=== PATIENT | female | born 1945 | race Caucasian/White ===

== ENCOUNTER 2017-06-07 18:22 | Emergency (ER) | payer MEDICARE ==
[~2017-06-07 18:22] MED LIST: ASPI325T PO; DEXI60CA3 PO; HYDR12.56 PO; LORTA5 PO; LOSA50TA PO; ZOCO40TA PO
[2017-06-07 18:25] VITALS: BP 188/91; PULSE 58; RESP 20; TEMP 98.2; O2SAT 98
[2017-06-07] MEDS ORDERED: GABA300C5 PO (18:42)
[2017-06-07] MEDS ORDERED: ASPI-183 PO (18:42)
[2017-06-07] MEDS ORDERED: ZOLP5TAB3 PO (18:42)
[2017-06-07] MEDS ORDERED: SIMV40TA PO (18:42)
[2017-06-07] MEDS ORDERED: HYDR12.56 PO (18:42)
[2017-06-07] MEDS ORDERED: LOSA100T PO (18:42)
--- NOTE | 2017-06-07 18:56 | PD ---
HPI Chief Complaint: Musculoskeletal Complaint Time Seen by Provider: 18:37 Travel History International Travel<30 days: Yes Contact w/Intl Traveler<30days: Yes [place] of [place] Traveled to known affect area: No History of Present Illness HPI 71-year-old female complaining of right-sided back pain. Patient states that she fell 6 days ago landed on her back. Patient states that she has persistent right-sided back pain since then. Patient denies any head injury. Patient denies any headache or neck pain. Patient denies any chest pain or shortness of breath. Patient denies abdominal pain. Patient denies any focal weakness or numbness of the extremity. Patient states the pain is sharp pain is aching pain localized to right low back area. Patient denies any pain radiation. Patient denies any fever chills. Patient denies any nausea vomiting diarrhea. Patient status post back surgery 5 in the past. Patient takes gabapentin intermittently. Patient has history of chronic kidney disease, anemia from chronic kidney disease, hyperlipidemia, hypothyroidism, PE, TIA. Patient states that she also has history of kidney stone in the past. PFSH Past Medical History Arthritis: Yes Asthma: No Anxiety: Yes Depression: Yes Cancer: Yes (THYROID) Cardiovascular Problems: Yes (CHF) High Cholesterol: Yes Chest Pain: Yes Congestive Heart Failure: Yes COPD: No Cerebrovascular Accident: Yes (7 years ago) Diabetes: No Diminished Hearing: No Endocrine: Yes (THYROIDECTOMY) Gastrointestinal Disorders: Yes (DYSPHAGIA, DIVERTICULOSIS) GERD: Yes Genitourinary: Yes (STRESS INCONTINENCE) Hiatal Hernia: Yes Hypertension: Yes Immune Disorder: No Implanted Vascular Access Dvce: Yes Kidney Stones: Yes (several) Musculoskeletal: Yes (ARTHRITIS) Neurologic: Yes (STROKE 2006) Psychiatric: Yes Reproductive: No Respiratory: Yes (BILATERAL EFFUSION) Migraines: No Renal Failure: Yes (CKD) Seizures: No Sleep Apnea: No Thyroid Disease: Yes (HYPOTHYROIDISM/ ca) Ulcer: No Tetanus Vaccination: > 5 Years Influenza Vaccination: Yes PNEUMOCCOCAL Vaccine (Year): 1 Menopausal: Yes : 4 Para: 3 : 1 Past Surgical History Abdominal Surgery: Yes (PARTIAL COLECTOMY/COLOSTOMY AND REVERSAL) Body Medical Devices: hardware inthe back rt side and ivc filter rt neck Cardiac Surgery: Yes (CARDIOPERICENTENIS) Ear Surgery: No Endocrine Surgery: Yes (THYROID BIOPSY) Eye Surgery: No Genitourinary Surgery: Yes (BLADDER REPAIR X 2) Hysterectomy: Yes Joint Replacement: Yes (RT KNEE) Oral Surgery: No Pacemaker: No Thoracic Surgery: Yes (thyroidectomy 2010) Other Surgery: Yes Social History Alcohol Use: Yes ("Not much") Tobacco Use: No Substance Use: No Allergies-Medications (Allergen,Severity, Reaction): Coded Allergies: acetaminophen (Unverified Allergy, Severe, ITCHING, 06/07/17) confusion propoxyphene (Unverified Allergy, Severe, ITCHING, 06/07/17) confusion Reported Meds & Prescriptions Reported Meds & Active Scripts Active Reported Gabapentin 300 Mg Cap 300 Mg PO TID Zolpidem (Zolpidem Tartrate) 5 Mg Tab 5 Mg PO HS PRN Hydrochlorothiazide 12.5 Mg Tab 12.5 Mg PO DAILY Simvastatin 40 Mg Tab 40 Mg PO HS Losartan (Losartan Potassium) 100 Mg Tab 100 Mg PO DAILY Aspirin 325 Mg Tab 325 Mg PO DAILY Review of Systems General / Constitutional: No: Fever Eyes: No: Visual changes HENT: No: Headaches Cardiovascular: No: Chest Pain or Discomfort Respiratory: No: Shortness of Breath Gastrointestinal: No: Abdominal Pain Genitourinary: No: Dysuria Musculoskeletal: No: Pain Skin: No Rash Neurologic: No: Weakness Psychiatric: No: Depression Endocrine: No: Polydipsia Hematologic/Lymphatic: No: Easy Bruising Physical Exam Narrative GENERAL: Well-nourished, well-developed patient. SKIN: Focused skin assessment warm/dry. HEAD: Normocephalic. EYES: No scleral icterus. No injection or drainage. NECK: Supple, trachea midline. No JVD or lymphadenopathy. CARDIOVASCULAR: Regular rate and rhythm without murmurs, gallops, or rubs. RESPIRATORY: Breath sounds equal bilaterally. No accessory muscle use. GASTROINTESTINAL: Abdomen soft, non-tender, nondistended. MUSCULOSKELETAL: No cyanosis, or edema. BACK: Patient has moderate tenderness on palpation left lumbar area without obvious deformity. No CVA tenderness. Negative straight leg raising. Neurologic exam normal. Data Data Last Documented VS Vital Signs Date Time Temp Pulse Resp B/P (MAP) Pulse Ox O2 Delivery O2 Flow Rate FiO2 06/07/17 18:25 98.2 58 20 188/91 (123) 98 MDM Medical Decision Making Medical Screen Exam Complete: Yes Emergency Medical Condition: Yes Differential Diagnosis Differential diagnosis including musculoskeletal, lumbar spine fracture, nephrolithiasis, pyelonephritis. Narrative Course 71-year-old female with right low back pain. Status post fall. History kidney stone. Status post back surgery in the past. Billy Roberts MD Jun 07, 2017 18:56
[2017-06-07 19:15] LABS: BLOOD, URINE TRACE (NEG); GLUCOSE,URINE NEG (NEG); KETONE, URINE NEG (NEG); NITRITE,URINE NEG (NEG)
[2017-06-07 19:17] LABS: AUTOMATED NEUTROPHIL # 3.3 TH/MM3 (1.8-7.7); BASOPHIL % 0.7 % (0.0-2.0); EOSINOPHIL # 0.2 TH/MM3 (0-0.4); HEMATOCRIT 33.7 % (35.0-46.0); HEMO FLAGS DIFF FINAL; LYMPH % 23.6 % (9.0-44.0); LYMPHOCYTE # 1.2 TH/MM3 (1.0-4.8); MEAN CELL VOLUME 87.3 FL (80.0-100.0); MEAN CORPUSCULAR HEMOGLOBIN 28.2 PG (27.0-34.0); MEAN CORPUSCULAR HGB CONC 32.3 % (32.0-36.0); MONO % 6.3 % (0.0-8.0); NEUT % 65.4 % (16.0-70.0); PLATELET COUNT 202 TH/MM3 (150-450); RED BLOOD COUNT 3.87 MIL/MM3 (4.00-5.30); RED CELL DISTRIBUTION WIDTH 14.2 % (11.6-17.2)
[2017-06-07 19:22] VITALS: BP 175/84; PULSE 60; RESP 16; O2SAT 97
[2017-06-07 19:23] LABS: URINE COLOR YELLOW (YELLW/STRAW)
[2017-06-07 19:24] LABS: COMMENT (UR) CULTURE INDICATED; CULTURE IF INDICATED CULTURE INDICATED; RBC, URINE 0-3 /hpf (0-3); SQUAMOUS EPITHELIAL CELL URINE 0-5 /hpf (0-5)
[2017-06-07 19:29] LABS: CHLORIDE 110 MEQ/L (98-107); POTASSIUM 3.9 MEQ/L (3.5-5.1); SODIUM (NA) 143 MEQ/L (136-145)
[2017-06-07 19:33] LABS: ANION GAP 9 MEQ/L (5-15); BICARBONATE 24.4 MEQ/L (21.0-32.0); BLOOD UREA NITROGEN 32 MG/DL (7-18)
[2017-06-07 19:35] LABS: APTT (PATIENT) 24.5 SEC (24.3-30.1); INTERNATIONAL NORMALIZED RATIO 0.9 RATIO; PROTHROMBIN TIME - PATIENT 10.4 SEC (9.8-11.6)
[2017-06-07 19:36] LABS: ALT (GPT) 20 U/L (10-53); AST (GOT) 14 U/L (15-37); GLOMERULAR FILTRATION RATE 32 ML/MIN (>89)
[2017-06-07 19:37] LABS: TOTAL BILIRUBIN ADULT 0.7 MG/DL (0.2-1.0)
[2017-06-07 19:39] LABS: ALKALINE PHOSPHATASE 108 U/L (45-117)
--- NOTE | 2017-06-07 20:31 | RADRPT ---
EXAM DATE/TIME: 06/07/2017 19:22 [facility] COMPARISON: CT ABDOMEN & PELVIS W/O CONTRAST, January 12, 2015, 20:40. INDICATIONS : Injury last Friday. Right sided flank/back pain. Prior history of renal calculi and lumbar surgery ORAL CONTRAST: No oral contrast ingested. RADIATION DOSE: 20.38 CTDIvol (mGy) ; Combined studies MEDICAL HISTORY : Hypertension. Diverticulosis. Renal calculi. SURGICAL HISTORY : Cholecystectomy. Hysterectomy.Fusion, lumbar.stimulator ENCOUNTER: Initial ACUITY: 1 week PAIN SCALE: 10/10 LOCATION: Right flank TECHNIQUE: Volumetric scanning of the abdomen and pelvis was performed. Using automated exposure control and ad justment of the mA and/or kV according to patient size, radiation dose was kept as low as reasonably achievable to obtain optimal diagnostic quality images. DICOM format image data is available electro nically for review and comparison. FINDINGS: The liver, spleen, pancreas and adrenal glands are normal. Numerous cortical and parapelvic cysts are seen of both kidneys. There are increased density masses m easuring 15 mm of the right upper pole and 13 mm of the left mid zone also noted. No stones are seen. No hydronephrosis or hydroureter. Several tiny stones are seen dependently in the gallbladder. No ductal stone or ductal dilatation. Patient has severe sigmoid colon diverticulosis but no evidence of acute inflammatory changes. There is an IVC filter. Atherosclerotic calcification seen of the abdominal aorta. No aneurysm. Previous hysterectomy. Previous ventral hernia repair with mesh. Previous right hemicolectomy. Scarring/atelectasis seen in the visualized left lung base. I don't see an acute fracture of the visualized osseous structures. Surgical and degenerative changes are seen of the lumbar spine. CONCLUSION: 1. No stone or evidence of obstructive uropathy of either kidney. 2. Surgical changes include hysterectomy, right hemicolectomy, ventral hernia repair and IVC filter p lacement. There also extensive surgical changes of the lumbar spine. I don't see an acute bony abnorm ality. 3. Severe diverticulosis of the sigmoid colon but no evidence of diverticulitis. 4. Numerous cortical and peripelvic cysts of both kidneys. There are increased density masses of righ t upper pole and left mid zone that are probably proteinaceous or debris filled cysts. Renal ultrasou nd or contrast-enhanced CT may be helpful in further characterizing. 5. Tiny stones in the gallbladder. Levi Lomeli MD on June 07, 2017 at 20:24 Board Certified Radiologist. This report was verified electronically.
--- NOTE | 2017-06-07 20:33 | RADRPT ---
EXAM DATE/TIME: 06/07/2017 19:22 [facility] COMPARISON: No previous studies available for comparison. INDICATIONS : Injury last Friday. Right flank pain. Prior history of renal calculi and lumbar surgery RADIATION DOSE: CTDIvol (mGy) ; Reconstructed from previous dataset, no dose MEDICAL HISTORY : Hypertension. Renal calculi. Diverticulosis. SURGICAL HISTORY : Fusion, lumbar. Cholecystectomy.Hysterectomy.stimulator ENCOUNTER: Initial ACUITY: 1 week PAIN SCALE: 10/10 LOCATION: Right flank TECHNIQUE: Volumetric scanning of the lumbar spine was performed. Multiplanar reconstructions in the sagittal, coronal and oblique axial planes were performed. Using automated exposure control and adjustment of the mA and/or kV according to patient size, radiation dose was kept as low as reasonably achievable t o obtain optimal diagnostic quality images. DICOM format image data is available electronically for review and comparison. FINDINGS: The patient has had previous fusion procedure with interbody and posterior instrumentation from L2-S1 , all appearing solidly healed in normal alignment. No evidence of hardware failure or loosening. Moderate to severe disc space narrowing with vacuum phenomena and broad posterior disc osteophyte com plexes are seen at both T12/L1 and L1/L2. There is mild spinal stenosis and right greater than left f oraminal stenosis at L1/L2. There is a spinal stimulator. CONCLUSION: 1. No fracture, subluxation or evidence of hardware failure/loosening of the lumbar spine. 2. Surgical and degenerative changes as above. Levi Lomeli MD on June 07, 2017 at 20:29 Board Certified Radiologist. This report was verified electronically.
[2017-06-07] MEDS ORDERED: ZOFR4TAB PO (21:07)
[2017-06-07] MEDS ORDERED: TRAM50TA PO (21:07)
[2017-06-07] MEDS ORDERED: MACR100C2 PO (21:07)
--- NOTE | 2017-06-07 21:09 | PD ---
Physical Exam Time Seen by Provider: 20:[address] Roberts left knee with this patient to check the results of the CT abdomen/ pelvis and likely discharge. Data Data Last Documented VS Vital Signs Date Time Temp Pulse Resp B/P (MAP) Pulse Ox O2 Delivery O2 Flow Rate FiO2 06/07/17 19:48 20 06/07/17 19:22 97 Room Air 06/07/17 19:22 60 175/84 (114) 06/07/17 18:25 98.2 Orders Orders Complete Blood Count With Diff (06/07/17 18:50) Comprehensive Metabolic Panel (06/07/17 18:50) Prothrombin Time / Inr (Pt) (06/07/17 18:50) Act Partial Throm Time (Ptt) (06/07/17 18:50) Urinalysis - C+S If Indicated (06/07/17 18:50) Thyroid Stimulating Hormone (06/07/17 18:50) Ct Abd/Pel W/O Iv Contrast (06/07/17 18:50) Iv Access Insert/Monitor (06/07/17 18:50) Ecg Monitoring (06/07/17 18:50) Oximetry (06/07/17 18:50) Ct Lumb Spine W/O Contrast (06/07/17 18:50) Urine Culture (06/07/17 19:00) Labs Laboratory Tests Test 06/07/17 19:00 06/07/17 19:05 Urine Color YELLOW Urine Turbidity CLEAR Urine pH 6.0 Urine Specific [place] 1.011 Urine Protein TRACE mg/dL Urine Glucose (UA) NEG mg/dL Urine Ketones NEG mg/dL Urine Occult Blood TRACE Urine Nitrite NEG Urine Bilirubin NEG Urine Leukocyte Esterase TRACE Urine RBC 0-3 /hpf Urine WBC 9-14 /hpf Urine WBC Clumps FEW Urine Squamous Epithelial Cells 0-5 /hpf Microscopic Urinalysis Comment CULTURE INDICATED White Blood Count 5.0 TH/MM3 Red Blood Count 3.87 MIL/MM3 Hemoglobin 10.9 GM/DL Hematocrit 33.7 % Mean Corpuscular Volume 87.3 FL Mean Corpuscular Hemoglobin 28.2 PG Mean Corpuscular Hemoglobin Concent 32.3 % Red Cell Distribution Width 14.2 % Platelet Count 202 TH/MM3 Mean Platelet Volume 9.5 FL Neutrophils (%) (Auto) 65.4 % Lymphocytes (%) (Auto) 23.6 % Monocytes (%) (Auto) 6.3 % Eosinophils (%) (Auto) 4.0 % Basophils (%) (Auto) 0.7 % Neutrophils # (Auto) 3.3 TH/MM3 Lymphocytes # (Auto) 1.2 TH/MM3 Monocytes # (Auto) 0.3 TH/MM3 Eosinophils # (Auto) 0.2 TH/MM3 Basophils # (Auto) 0.0 TH/MM3 CBC Comment DIFF FINAL Differential Comment Prothrombin Time 10.4 SEC Prothromb Time International Ratio 0.9 RATIO Activated Partial Thromboplast Time 24.5 SEC Blood Urea Nitrogen 32 MG/DL Creatinine 1.60 MG/DL Random Glucose 95 MG/DL Total Protein 6.8 GM/DL Albumin 3.7 GM/DL Calcium Level 8.1 MG/DL Alkaline Phosphatase 108 U/L Aspartate Amino Transf (AST/SGOT) 14 U/L Alanine Aminotransferase (ALT/SGPT) 20 U/L Total Bilirubin 0.7 MG/DL Sodium Level 143 MEQ/L Potassium Level 3.9 MEQ/L Chloride Level 110 MEQ/L Carbon Dioxide Level 24.4 MEQ/L Anion Gap 9 MEQ/L Estimat Glomerular Filtration Rate 32 ML/MIN Thyroid Stimulating Hormone 3rd Gen 0.386 uIU/ML MDM Medical Record Reviewed: Yes Supervised Visit with JUDY: No Interpretation(s) The CT of the abdomen/pelvis shows no stone or evidence of obstructive uropathy of either kidney. Incidental notations include previous hysterectomy, right hemicolectomy, ventral hernia repair, IVC filter placement, extensive surgical changes of the lumbar spine but no acute bony abnormality. There is severe diverticulosis of the sigmoid colon without evidence of diverticulitis. There are numerous cortical and peripelvic cysts of both kidneys and likely proteinaceous debris filled cysts. There is also noted tiny stones with gallbladder. The CBC is normal except for hemoglobin of 10.9 and hematocrit of 33.7. The coagulation profile is normal. The complete metabolic profile shows a creatinine of 1.6, BUN 32, calcium 8.1 but is otherwise unremarkable. The TSH is normal. The urinalysis shows trace leukocyte esterase with 9-14 white cells and culture is indicated. Differential Diagnosis Acute lumbosacral strain, urinary tract infection, urinary stone, diverticulitis , colitis Narrative Course The patient has tenderness over the musculature of the right lumbosacral area in a diffuse area. Most of her pain is likely musculoskeletal pain-acute lumbosacral strain. She also has a urinary tract infection. She will get tramadol for the pain and Macrobid for the urinary tract infection. She is to follow-up with Dr. Valenzuela. Diagnosis Primary Impression: Acute lumbosacral myofascial strain Additional Impression: Urinary tract infection Additional Instruction: Follow-up with Dr. Valenzuela next week. The pain pill as one every 6 hours as needed for pain. The nausea medication and is every 6 hours as needed. Take the antibiotic twice daily for 10 days for the urine infection. Med/Other Pt SpecificInfo: Prescription(s) given Scripts Nitrofurantoin Monohydrate Macrocrystals (Macrobid) 100 Mg Cap 100 MG PO BID for Infection for 10 Days, #20 CAP 0 Refills Prov: Farhad Looney MD 06/07/17 Ondansetron (Zofran) 4 Mg Tab 4 MG PO Q6HR Y for NAUSEA OR VOMITING, #30 TAB 0 Refills Prov: Farhad Looney MD 06/07/17 Tramadol (Tramadol) 50 Mg Tab 50 MG PO Q6H Y for PAIN, #30 TAB 0 Refills Prov: Farhad Looney MD 06/07/17 Disposition: 01 DISCHARGE HOME Condition: Stable Farhad Looney MD Jun 07, 2017 21:09
[2017-06-07] MEDS ORDERED: NITROFURANTOIN MONOHYD MACROCR 100 MG CAP PO ONE (21:15)
[2017-06-07] MEDS ORDERED: KETOROLAC TROMETHAMINE 60 MG/2 ML (IM) VIAL IVP ONE (21:15)
[2017-06-07 21:31] VITALS: BP 147/75
== END 2017-06-07 21:34 | disposition home or self-care (01) ==
LOC: PHED 18:22
DX: S39.012A Strain of muscle, fascia and tendon of lower back, initial encounter (principal); W19.XXXA Unspecified fall, initial encounter; N39.0 Urinary tract infection, site not specified; B96.20 Unspecified Escherichia coli [E. coli] as the cause of diseases classified elsewhere; I13.0 Hypertensive heart and chronic kidney disease with heart failure and stage 1 through stage 4 chronic kidney disease, or unspecified chronic kidney disease; I50.9 Heart failure, unspecified; N18.9 Chronic kidney disease, unspecified
CPT/HCPCS: 72131; 74176; 80053; 81001; 84443; 85025; 85610; 85730; 87077; 87086; 87186; 96374; 99285; J1885